=== PATIENT | male | born 2000 | race Caucasian/White ===

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

== ENCOUNTER → 2019-05-05 | Outpatient (CLI) | payer BC, OTHER ==
[~2019-05-05] MED LIST: OLAN5 PO; PROZAC20 MG PO
== END | disposition home or self-care (01) ==
LOC: LAB SHORT 19:37 → LAB EV 19:37
DX: R21 Rash and other nonspecific skin eruption (principal)
CPT/HCPCS: 86592

== ENCOUNTER → 2019-09-29 | Outpatient (CLI) | payer BC, OTHER | END | disposition home or self-care (01) | LOC: LAB SHORT 18:07 → LAB EV 18:07 | DX: R50.9 Fever, unspecified (principal); Z20.828 Contact with and (suspected) exposure to other viral communicable diseases | CPT/HCPCS: 87081; U0003 ==

== ENCOUNTER → 2020-03-27 | Outpatient (CLI) | payer BC, OTHER ==
[2020-03-28 14:32] LABS: CORONAVIRUS (COVID19) CSH-NRL Negative (Negative)
== END | disposition home or self-care (01) ==
LOC: LAB EV 09:08
PROVIDERS: Chiropractor
DX: R07.0 Pain in throat (principal); Z20.828 Contact with and (suspected) exposure to other viral communicable diseases
CPT/HCPCS: 87081; U0003

== ENCOUNTER 2024-05-05 11:15 | Emergency (ER) | payer OTHER ==
[~2024-05-05] VITALS: Ht 175.3 cm; Wt 59.0 kg
[2024-05-05 11:59] VITALS: BP 145/74
== END 2024-05-05 12:45 | disposition home or self-care (01) ==
LOC: ER 11:15
DX: Z04.1 Encounter for examination and observation following transport accident (principal); V48.5XXA Car driver injured in noncollision transport accident in traffic accident, initial encounter
CPT/HCPCS: 99283